=== PATIENT | female | born 1995 | race Caucasian/White ===

== ENCOUNTER 2021-08-17 20:22 | Emergency (ER) | payer OTHER ==
[~2021-08-17] VITALS: Ht 162.6 cm; Wt 75.0 kg
[2021-08-17 20:24] VITALS: BP 122/76
== END 2021-08-18 01:09 | disposition left against medical advice (07) ==
LOC: EMS 20:32
DX: Z53.21 Procedure and treatment not carried out due to patient leaving prior to being seen by health care provider (principal)